=== PATIENT | male | born 1960 | race African-American/Black ===

== ENCOUNTER 2018-04-26 17:09 | Emergency (ER) | payer OTHER ==
[~2018-04-26] VITALS: Ht 175.3 cm; Wt 93.4 kg
[2018-04-26 17:25] VITALS: Ht 175.3 cm; Wt 93.4 kg
[2018-04-26 19:11] LABS: BASOPHIL % 1.4 % (0-2); PLATELET COUNT 243 x10^3mcL (130-400)
[2018-04-26 19:16] LABS: RED CELL DISTRIBUTION WIDTH 15.1 % (11.5-14.5)
[2018-04-26 19:21] LABS: CALCIUM 8.8 mg/dL (8.5-10.1); CARBON DIOXIDE 30.5 mmol/L (21-32); CHLORIDE SERUM 103 mmol/L (98-107); CREATININE SERUM 1.3 mg/dL (0.7-1.3); GFR1 > 60 mL/min; GLUCOSE SERUM 95 mg/dL (74-106); POTASSIUM SERUM 3.8 mmol/L (3.5-5.1); SODIUM SERUM 142 mmol/L (136-145)
[2018-04-26 19:26] LABS: ALKALINE PHOSPHATASE 82 U/L (46-116); ALT/SGPT 43 U/L (16-63); AST/SGOT 23 U/L (15-37); BILIRUBIN TOTAL 0.69 mg/dL (0.20-1.00); TOTAL PROTEIN, SERUM 8.4 g/dL (6.4-8.2)
[2018-04-26 20:43] VITALS: BP 174/110
== END 2018-04-26 20:43 | disposition short-term general hospital (02) ==
LOC: ED 17:09
PROVIDERS: Emergency Medicine
DX: H40.212 Acute angle-closure glaucoma, left eye (principal)
CPT/HCPCS: J1120